=== PATIENT | female | born 1930 | race Caucasian/White ===

== ENCOUNTER 2017-02-05 17:01 | Emergency (ER) | payer MEDICARE, BC ==
[2017-02-05 17:31] VITALS: BP 120/39
[2017-02-05] MEDS ORDERED: Bacitracin Oint 1 GM U/D Packet TOP ONE (17:44)
--- NOTE | 2017-02-05 18:30 | EDM.PDOC ---
ED HPI GENERAL MEDICAL PROBLEM - General Chief Complaint: Laceration Stated Complaint: FELL; INJURY Time Seen by Provider: 02/05/17 17:40 Source of Information: Reports: Patient, Family History Limitations: Reports: No Limitations - History of Present Illness INITIAL COMMENTS - FREE TEXT/NARRATIVE: 87-year-old female stumbled on her stairs bumping her left forehead and sustaining a 4 cm laceration on her lower left leg. This happened 2 hours ago. She had no loss of consciousness, has no headache, no visual complaints, no nausea or vomiting or injury to the chest or abdomen. If it wasn't for the leg laceration she wouldn't come in. Onset: Today (2 hours ago) Location: Reports: Head, Lower Extremity, Left Severity: Mild Associated Symptoms: Reports: No Other Symptoms - Related Data Allergies Allergy/AdvReac Type Severity Reaction Status Date / Time Sulfa (Sulfonamide Allergy Severe Hives Verified 07/09/15 22:03 Antibiotics) Home Meds: Home Meds Aspirin [Halfprin] 81 mg PO DAILY 02/11/13 [History] Alendronate [Fosamax] 70 mg PO WEEKLY 01/03/15 [History] Levothyroxine [Synthroid] 100 mcg PO DAILY 01/03/15 [History] Past Medical History - Past Health History Medical/Surgical History: Denies Medical/Surgical History HEENT History: Reports: Cataract, Impaired Vision Cardiovascular History: Reports: Hypertension [employer]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: Musculoskeletal History: Reports: Osteoarthritis, Osteoporosis Neurological History: Reports: Vertigo Endocrine/Metabolic History: Reports: Hypothyroidism - Infectious Disease History Infectious Disease History: Reports: Chicken Pox, Measles, Mumps - Past Surgical History HEENT Surgical History: Reports: Cataract Surgery, Tonsillectomy GI Surgical History: Reports: Appendectomy Social & Family History - Tobacco Use Smoking Status *Q: Never Smoker Second Hand Smoke Exposure: Yes - Caffeine Use Caffeine Use: Reports: Coffee - Alcohol Use Days Per Week of Alcohol Use: 0 - Recreational Drug Use Recreational Drug Use: No ED ROS GENERAL - Review of Systems Review Of Systems: See Below Constitutional: Denies: Fever, Chills HEENT: Denies: Vision Change Respiratory: Denies: Shortness of Breath, Cough Cardiovascular: Denies: Chest Pain GI/Abdominal: Denies: Abdominal Pain, Nausea, Vomiting Skin: Reports: Other (Abrasion on her left forehead, laceration on her leg) Neurological: Denies: Dizziness, Headache ED EXAM, SKIN/RASH Exam: See Below Exam Limited By: No Limitations General Appearance: Alert, No Apparent Distress Eye Exam: Bilateral Eye: EOMI Head: Other (Patient has a superficial abrasion on the left forehead, no contusion or hematoma) Neck: Normal Inspection, Supple, Non-Tender Respiratory/Chest: No Respiratory Distress, Lungs Clear Extremities: Other (Remainder of exam is limited to the lower extremities. She has an oblique 4 cm laceration across the anterior aspect of the lower left leg above the ankle. No other injuries, no edema.) Course - Vital Signs Last Recorded V/S: Last Vital Signs Temp 97.3 F 02/05/17 17:36 Pulse 67 02/05/17 17:36 Resp 14 02/05/17 17:36 BP 120/39 L 02/05/17 17:36 Pulse Ox 98 02/05/17 17:36 - Orders/Labs/Meds Meds: Medications Discontinued Medications Generic Name Dose Route Start Last Admin Trade Name Carlos PRN Reason Stop Dose Admin Bacitracin 1 dose 02/05/17 17:44 02/05/17 17:51 Bacitracin Oint 1 Gm TOP 02/05/17 17:45 1 dose ONETIME ONE Administration Lidocaine HCl 5 ml 02/05/17 17:44 02/05/17 17:51 Xylocaine-Mpf 1% INJECT 02/05/17 17:45 5 ml ONETIME ONE Administration - Re-Assessments/Exams Free Text/Narrative Re-Assessment/Exam: 02/05/17 18:33 Laceration was anesthetized with 1% lidocaine and then cleansed thoroughly with saline. 6 4-0 Ethilon sutures were used to close the laceration. Topical bacitracin was applied and a wraparound dressing over the lower leg was placed over the laceration and should remain overnight. Sutures can be removed in 8 days. Departure - Departure Time of Disposition: 18:37 Disposition: Home, Self-Care 01 Condition: Good Clinical Impression: Laceration of leg Qualifiers: Encounter type: initial encounter Laterality: left Qualified Code(s): S81.812A - Laceration without foreign body, left lower leg, initial encounter Contusion of forehead Qualifiers: Encounter type: initial encounter Qualified Code(s): S00.83XA - Contusion of other part of head, initial encounter - Discharge Information Instructions: Laceration Care, Adult Referrals: Chin Carballo MD [Primary Care Provider] - Forms: ED Department Discharge Care Plan Goals: Ice to sore areas may help over the next several days. Tylenol or ibuprofen for pain. Sutures can be removed in 8 or 9 days, next Monday or Monday. Keep the wounds covered and clean while healing. Return anytime sooner if concerns of infection or not healing satisfactorily.
== END 2017-02-05 18:37 | disposition home or self-care (01) ==
LOC: JP.ED 17:01
DX: S81.812A Laceration without foreign body, left lower leg, initial encounter (principal); S00.83XA Contusion of other part of head, initial encounter; I10 Essential (primary) hypertension; M19.90 Unspecified osteoarthritis, unspecified site; E03.9 Hypothyroidism, unspecified; M81.0 Age-related osteoporosis without current pathological fracture; Z98.49 Cataract extraction status, unspecified eye; Z98.890 Other specified postprocedural states; Z90.49 Acquired absence of other specified parts of digestive tract; Z79.82 Long term (current) use of aspirin; Z79.899 Other long term (current) drug therapy; Z88.2 Allergy status to sulfonamides; W18.49XA Other slipping, tripping and stumbling without falling, initial encounter; Y92.009 Unspecified place in unspecified non-institutional (private) residence as the place of occurrence of the external cause
CPT/HCPCS: 12002; 99283-25